=== PATIENT | male | born 1975 ===

== ENCOUNTER 2017-09-07 12:38 | Emergency (ER) | payer OTHER, SELFPAY ==
[2017-09-07 12:46] VITALS: RESP 16; TEMP 98.2
[2017-09-07 13:57] VITALS: BP 147/83; PULSE 114; O2SAT 97
[2017-09-07] MEDS ORDERED: Tetanus/Diphtheria Toxoids 0.5 ml Syringe IM ONE ×2 (14:03→14:16)
[2017-09-07] MEDS ORDERED: Bacitracin 500 Units/gm Oint Foilpak UD ONE (14:21)
--- NOTE | 2017-09-07 14:41 | RAD ---
PROCEDURE: Bilateral hand radiographs. HISTORY: injury COMPARISON: None. FINDINGS: BONES: Right Hand: No acute fracture. Left Hand: No acute fracture. JOINTS: Right Hand: Unremarkable. Left Hand: Unremarkable. SOFT TISSUES: Right Hand: Normal. Left Hand: Mild soft tissue swelling surrounding 5th digit. OTHER FINDINGS: None. IMPRESSION: No demonstrated fracture or dislocation.
--- NOTE | 2017-09-07 14:47 | C.PDOC ---
History Of Present Illness 41 y/o male presents to the ED for evaluation of injuries to both hands, sustained today. States he was using a broach grinder stone to cut granite, and while in use the machine fell apart in his hands, such that the granite sliced the top of both of his hands. He sustained many abrasions to the dorsal aspect, the worst of which are at his left pinky and right index finger. Patient is able to move all digits. No changes in sensation. Time Seen by Provider: 09/07/17 13:25 Chief Complaint (Nursing): Finger,Hand,&Wrist History Per: Patient History/Exam Limitations: no limitations Onset/Duration Of Symptoms: Mins Current Symptoms Are (Timing): Still Present Past Medical History Reviewed: Historical Data, Nursing Documentation, Vital Signs Vital Signs: Last Vital Signs Temp 98.2 F 09/07/17 12:42 Pulse 114 H 09/07/17 13:56 Resp 16 09/07/17 13:56 BP 147/83 09/07/17 13:56 Pulse Ox 97 09/07/17 17:15 - Medical History PMH: No Chronic Diseases Other Surgeries: Left leg surgery Family History: States: No Known Family Hx - Social History Hx Tobacco Use: No Hx Alcohol Use: Yes Hx Substance Use: No - Immunization History Hx Tetanus Toxoid Vaccination: No Hx Influenza Vaccination: No Hx Pneumococcal Vaccination: No Review Of Systems Except As Marked, All Systems Reviewed And Found Negative. Musculoskeletal: Positive for: Hand Pain Skin: Positive for: Lesions Neurological: Negative for: Weakness, Numbness Physical Exam - Physical Exam Appears: Non-toxic, No Acute Distress Skin: Normal Color, Warm, Dry Head: Atraumatic, Normacephalic Eye(s): bilateral: Normal Inspection, PERRL, EOMI Oral Mucosa: Moist Neck: Normal ROM Chest: Symmetrical Respiratory: No Accessory Muscle Use Extremity: Normal ROM (with full ROM of all digits), Capillary Refill (< 2 sec) , Swelling (noted to left 5th digit), Other (Multiple superficial abrasions to dorsal aspect of both hands and fingers; largest at right index finger (middle phalanx); left 5th digit with significant deep abrasion) Pulses: Left Radial: Normal, Right Radial: Normal Neurological/Psych: Oriented x3, Normal Motor, Normal Sensation ED Course And Treatment O2 Sat by Pulse Oximetry: 97 (RA) Pulse Ox Interpretation: Normal - Other Rad XR B/L HAND X-Ray: Read By Radiologist Interpretation: FINDINGS: BONES: Right Hand: No acute fracture. Left Hand: No acute fracture. JOINTS: Right Hand: Unremarkable. Left Hand: Unremarkable. SOFT TISSUES: Right Hand: Normal. Left Hand: Mild soft tissue swelling surrounding 5th digit. OTHER FINDINGS: None. IMPRESSION: No demonstrated fracture or dislocation. Progress Note: Tetanus booster given in the ED. X-rays ordered, informed patient of normal results. Patient soaked hands in normal saline with betadine. Bacitracin and sterile dressing applied. Patient will be discharged home with Keflex. Referred to hand specialist for follow up. Disposition - Disposition Referrals: Rigo Lundy MD [Staff Provider] - Disposition: HOME/ ROUTINE Disposition Time: 14:38 Condition: STABLE Additional Instructions: Follow up with Hand specialist within 1-2 days. Return to ED if feel worse. 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 - Scribe Statement The provider has reviewed the documentation as recorded by the Scribe (Caridad Akins) All medical record entries made by the Scribe were at my direction and personally dictated by me. I have reviewed the chart and agree that the record accurately reflects my personal performance of the history, physical exam, medical decision making, and the department course for this patient. I have also personally directed, reviewed, and agree with the discharge instructions and disposition.
== END 2017-09-07 15:01 | disposition home or self-care (01) ==
LOC: C.ER 12:38
DX: S61.402A Unspecified open wound of left hand, initial encounter (principal); S61.401A Unspecified open wound of right hand, initial encounter; W45.8XXA Other foreign body or object entering through skin, initial encounter; Y92.89 Other specified places as the place of occurrence of the external cause; Y99.0 Civilian activity done for income or pay